=== PATIENT | female | born 1945 | race Caucasian/White ===

== ENCOUNTER 2018-06-10 04:02 | Emergency (ER) | payer MEDICARE, BC ==
[~2018-06-10] VITALS: Ht 154.9 cm; Wt 76.0 kg
[2018-06-10 04:09] VITALS: BP 154/88
[2018-06-10] MEDS ORDERED: gabapentin 300mg capsule PO ONE (04:45)
== END 2018-06-10 05:02 | disposition home or self-care (01) ==
LOC: ER 04:04
DX: F43.0 Acute stress reaction (principal); Z76.0 Encounter for issue of repeat prescription; J45.909 Unspecified asthma, uncomplicated; Z88.8 Allergy status to other drugs, medicaments and biological substances
CPT/HCPCS: 99282

== ENCOUNTER 2018-08-05 07:29 | Emergency (ER) | payer MEDICARE, BC ==
[~2018-08-05] VITALS: Ht 157.5 cm; Wt 78.5 kg
[2018-08-05 08:23] LABS: BASOPHILS # (AUTO) 0.1 X10'3 (0-0.2); BASOPHILS % (AUTO) 0.7 % (0-1); EOSINOPHILS % (AUTO) 0 % (0-6); HEMATOCRIT 37.6 % (35.0-45.0); HEMOGLOBIN 12.3 g/dl (12.0-16.0); LYMPHOCYTES # (AUTO) 2.4 X10'3 (1.1-4.8); LYMPHOCYTES % (AUTO) 34.8 % (21-51); MEAN CORPUSCULAR HEMOGLOBIN 28.4 PG (27.0-31.0); MEAN CORPUSCULAR HGB CONC 32.7 % (33.0-36.5); MEAN PLATELET VOLUME 7.3 FL (7.4-10.4); MONOCYTES # (AUTO) 0.3 X10'3 (0-0.9); MONOCYTES % (AUTO) 4.1 % (2-12); NEUTROPHILS # (AUTO) 4.1 X10'3 (1.8-7.7); NEUTROPHILS % (AUTO) 60.4 % (42-75); PLATELET COUNT 326 X10'3 (140-440); RED BLOOD COUNT 4.31 X10'6 (4.20-5.60); RED CELL DISTRIBUTION WIDTH 14.6 % (11.5-14.5); WHITE BLOOD COUNT 6.9 X10'3 (4.5-11.0)
--- NOTE | 2018-08-05 08:26 | NUR ---
PT AMBULATED TO RESTROOM WITH STEADY GAIT, AT HER SIDE.
[2018-08-05 08:37] LABS: ALANINE AMINOTRANSFERASE 25 U/L (12-78); ALBUMIN 3.3 G/DL (3.4-5.0); ALBUMIN/GLOBULIN RATIO 0.8 (1.1-1.5); ALKALINE PHOSPHATASE 98 IU/L (46-116); ANION GAP 7 (8-16); ASPARTATE AMINO TRANSFERASE 19 U/L (10-37); BILIRUBIN,TOTAL 0.2 MG/DL (0.1-1.0); BLOOD UREA NITROGEN 10 MG/DL (7-18); BUN/CREATININE RATIO 14.9 (6.6-38.0); CALCIUM 8.8 MG/DL (8.5-10.1); CHLORIDE 101 MMOL/L (99-107); CREATININE 0.67 MG/DL (0.40-0.90); GLUCOSE 135 MG/DL (70-104); POTASSIUM 4.1 MMOL/L (3.5-5.1); SODIUM 139 MMOL/L (135-145); TOTAL PROTEIN 7.3 G/DL (6.4-8.2); eGFR 86 ML/MIN
[2018-08-05] MEDS ORDERED: normal saline 1000ML IV soln IVB ONE (08:40)
[2018-08-05 08:51] LABS: PARTIAL THROMBOPLASTIN TIME 28 SECONDS (22-32)
[2018-08-05 09:23] LABS: CLARITY,URINE CLEAR (Clear); COLOR,URINE YELLOW (Yellow); GLUCOSE, URINE NEGATIVE (Neg); KETONES,URINE NEGATIVE (Neg); LEUKOCYTE ESTERASE ,URINE NEGATIVE (Neg); NITRITES, URINE NEGATIVE (Neg); OCCULT BLOOD,URINE NEGATIVE (Neg); PROTEIN,URINE NEGATIVE (Neg); UROBILINOGEN,URINE 0.2 E.U/dL (0.2-1.0)
[2018-08-05 09:30] LABS: UA COLLECTION TYPE CLN CATCH MIDSTREAM
[2018-08-05 10:34] VITALS: BP 134/74
== END 2018-08-05 10:36 | disposition home or self-care (01) ==
LOC: ER 07:30
DX: E86.0 Dehydration (principal); R53.1 Weakness; J45.909 Unspecified asthma, uncomplicated; Z88.8 Allergy status to other drugs, medicaments and biological substances
CPT/HCPCS: 36415; 71045; 80053; 81003; 84484; 85025; 85610; 85730; 93005; 96360; 99284; J7030

== ENCOUNTER 2018-12-13 09:19 | Emergency (ER) | payer MEDICARE, BC ==
[~2018-12-13] VITALS: Ht 154.9 cm; Wt 75.0 kg
[2018-12-13] MEDS ORDERED: morphine 4 MG/ML inj SYRINge IV PRN (10:05)
[2018-12-13] MEDS ORDERED: ondansetron/PF 4mg/2ml inj IV ONE (10:05)
[2018-12-13] MEDS ORDERED: normal saline 1000ML IV soln IVB ONE (10:05)
[2018-12-13] MEDS ORDERED: ketorolac trometh. 30mg/ml inj. IV ONE (10:05)
[2018-12-13] MEDS ORDERED: ketorolac tromethamine 15mg/ml inj. IV ONE (10:10)
[2018-12-13 10:47] LABS: ALANINE AMINOTRANSFERASE 26 U/L (12-78); ALBUMIN 3.5 G/DL (3.4-5.0); ALBUMIN/GLOBULIN RATIO 0.8 (1.1-1.5); ALKALINE PHOSPHATASE 114 IU/L (46-116); ANION GAP 4 (8-16); ASPARTATE AMINO TRANSFERASE 19 U/L (10-37); BILIRUBIN,TOTAL 0.3 MG/DL (0.1-1.0); BLOOD UREA NITROGEN 11 MG/DL (7-18); BUN/CREATININE RATIO 19.3 (6.6-38.0); CALCIUM 9.1 MG/DL (8.5-10.1); CHLORIDE 98 MMOL/L (99-107); CREATININE 0.57 MG/DL (0.40-0.90); GLUCOSE 117 MG/DL (70-104); POTASSIUM 4.8 MMOL/L (3.5-5.1); SODIUM 134 MMOL/L (135-145); TOTAL CARBON DIOXIDE 32.4 MMOL/L (24-32); TOTAL PROTEIN 7.7 G/DL (6.4-8.2); eGFR > 90 ML/MIN
[2018-12-13 10:48] LABS: BASOPHILS # (AUTO) 0.1 X10'3 (0-0.2); BASOPHILS % (AUTO) 0.6 % (0-1); EOSINOPHILS # (AUTO) 0.1 X10'3 (0-0.9); EOSINOPHILS % (AUTO) 0.7 % (0-6); HEMATOCRIT 39.8 % (35.0-45.0); HEMOGLOBIN 13.3 g/dl (12.0-16.0); LYMPHOCYTES # (AUTO) 1.4 X10'3 (1.1-4.8); LYMPHOCYTES % (AUTO) 16.4 % (21-51); MEAN CORPUSCULAR HEMOGLOBIN 28.8 PG (27.0-31.0); MEAN CORPUSCULAR HGB CONC 33.4 g/dL (33.0-36.5); MEAN CORPUSCULAR VOLUME 86.2 FL (78-98); MEAN PLATELET VOLUME 6.6 FL (7.4-10.4); MONOCYTES # (AUTO) 0.2 X10'3 (0-0.9); MONOCYTES % (AUTO) 2.5 % (2-12); NEUTROPHILS # (AUTO) 6.7 X10'3 (1.8-7.7); NEUTROPHILS % (AUTO) 79.8 % (42-75); PLATELET COUNT 355 X10'3 (140-440); RED BLOOD COUNT 4.62 X10'6 (4.20-5.60); WHITE BLOOD COUNT 8.4 X10'3 (4.5-11.0)
[2018-12-13] MEDS ORDERED: TRAM50TA2 PO (12:54)
[2018-12-13 13:10] VITALS: BP 142/96
== END 2018-12-13 13:12 | disposition home or self-care (01) ==
LOC: ER 09:19
DX: M25.552 Pain in left hip (principal); M51.36 Other intervertebral disc degeneration, lumbar region; M48.061 Spinal stenosis, lumbar region without neurogenic claudication; I10 Essential (primary) hypertension; J45.909 Unspecified asthma, uncomplicated; K21.9 Gastro-esophageal reflux disease without esophagitis; G89.29 Other chronic pain; Z88.8 Allergy status to other drugs, medicaments and biological substances
CPT/HCPCS: 36415; 72133; 72192; 73502; 73564; 80053; 85025; 96374; 96375; 99284; J1885; J2270; J2405; J7030

== ENCOUNTER 2019-01-15 10:35 | Outpatient (CLI) | payer MEDICARE, BC | END 2019-01-15 23:59 | disposition home or self-care (01) | LOC: RAD 10:35 | PROVIDERS: ATTEND Physician Assistant | DX: M48.061 Spinal stenosis, lumbar region without neurogenic claudication (principal); M43.16 Spondylolisthesis, lumbar region | CPT/HCPCS: 72148 ==

== ENCOUNTER 2020-10-20 08:39 | Outpatient (CLI) | payer MEDICARE, BC ==
[~2020-10-20 08:39] MED LIST: PHEN-716 PO
== END 2020-10-20 23:59 | disposition home or self-care (01) ==
LOC: RAD 08:39
PROVIDERS: ATTEND Specialist
DX: M47.816 Spondylosis without myelopathy or radiculopathy, lumbar region (principal); M48.061 Spinal stenosis, lumbar region without neurogenic claudication; M51.36 Other intervertebral disc degeneration, lumbar region; M43.16 Spondylolisthesis, lumbar region
CPT/HCPCS: 72148

== ENCOUNTER 2021-07-23 05:10 | Emergency (ER) | payer MEDICARE, BC ==
[~2021-07-23] VITALS: Ht 154.9 cm; Wt 77.3 kg
[2021-07-23 05:17] VITALS: BP 181/95
== END 2021-07-23 14:26 | disposition left against medical advice (07) ==
LOC: ER 05:10
DX: R11.10 Vomiting, unspecified (principal); R19.7 Diarrhea, unspecified; Z53.21 Procedure and treatment not carried out due to patient leaving prior to being seen by health care provider

== ENCOUNTER 2024-01-12 10:26 | Emergency (ER) | payer MEDICARE, BC ==
[~2024-01-12] VITALS: Ht 154.9 cm; Wt 90.9 kg
[2024-01-12] MEDS ORDERED: ketorolac trometh. 30mg/ml inj. IM ONE (10:45)
[2024-01-12] MEDS ORDERED: PRED20TA PO (10:51)
[2024-01-12] MEDS ORDERED: CYCL-1 PO (10:51)
[2024-01-12] MEDS: cyclobenzaprine 10mg tablet PO ONE (10:55)
[2024-01-12] MEDS: dexamethasone sod phosphate 10mg/ml inj IM STA (10:57)
[2024-01-12] MEDS: ketorolac tromethamine 15mg/ml inj. IM ONE (10:58)
[2024-01-12 11:15] VITALS: BP 109/51; PULSE 71; RESP 17; TEMP 98.5; O2SAT 96
== END 2024-01-12 11:18 | disposition home or self-care (01) ==
LOC: ER 10:26
DX: G89.29 Other chronic pain (principal); M79.18 Myalgia, other site; F03.90 Unspecified dementia, unspecified severity, without behavioral disturbance, psychotic disturbance, mood disturbance, and anxiety; I10 Essential (primary) hypertension; J45.909 Unspecified asthma, uncomplicated; K21.9 Gastro-esophageal reflux disease without esophagitis; M54.9 Dorsalgia, unspecified; Z88.8 Allergy status to other drugs, medicaments and biological substances; Z79.899 Other long term (current) drug therapy
CPT/HCPCS: 96372; 99284; A4615; J1100; J1885

== ENCOUNTER 2024-04-10 10:18 | Emergency (ER) | payer MEDICARE, BC ==
[~2024-04-10] VITALS: Ht 154.9 cm; Wt 90.9 kg
[~2024-04-10 10:18] MED LIST changes: +CYCL-1 PO
[2024-04-10] MEDS: dexamethasone sod phosphate 10mg/ml inj IM STA (11:08)
[2024-04-10] MEDS ORDERED: PRED20TA PO (11:43)
[2024-04-10] MEDS: ketorolac trometh 15mg/ml vial 15 MG/ML ML IM ONE (11:58)
[2024-04-10 12:01] VITALS: BP 117/54; PULSE 77; RESP 16; TEMP 98.2; O2SAT 94
== END 2024-04-10 12:03 | disposition home or self-care (01) ==
LOC: ER 10:18
DX: G89.29 Other chronic pain (principal); I10 Essential (primary) hypertension; J45.909 Unspecified asthma, uncomplicated; K21.9 Gastro-esophageal reflux disease without esophagitis; Z88.8 Allergy status to other drugs, medicaments and biological substances; Z79.899 Other long term (current) drug therapy
CPT/HCPCS: 96372; 99284; J1100; J1885

== ENCOUNTER 2024-06-19 12:22 | Inpatient (IN) | payer MEDICARE, BC ==
[~2024-06-19] VITALS: Ht 154.9 cm; Wt 100.0 kg
[2024-06-19] MEDS: predniSONE 20 mg tablet PO ONE (14:49)
[2024-06-19] MEDS: morphine 4 MG/ML inj SYRINge IV ONE (14:49)
[2024-06-19] MEDS: ondansetron/PF 4mg/2ml inj IV ONE (14:49)
[2024-06-19 15:17] LABS: BASOPHILS # (AUTO) 0.1 X10'3 (0-0.2); BASOPHILS % (AUTO) 0.9 % (0-1); EOSINOPHILS # (AUTO) 0.1 X10'3 (0-0.9); EOSINOPHILS % (AUTO) 0.8 % (0-6); HEMATOCRIT 32.6 % (35.0-45.0); HEMOGLOBIN 10.5 g/dl (12.0-16.0); LYMPHOCYTES # (AUTO) 2.3 X10'3 (1.1-4.8); LYMPHOCYTES % (AUTO) 32.3 % (21-51); MEAN CORPUSCULAR HEMOGLOBIN 28.1 PG (27.0-31.0); MEAN CORPUSCULAR HGB CONC 32.1 g/dL (33.0-36.5); MEAN CORPUSCULAR VOLUME 87.5 FL (78-98); MEAN PLATELET VOLUME 6.8 FL (7.4-10.4); MONOCYTES # (AUTO) 0.6 X10'3 (0-0.9); MONOCYTES % (AUTO) 8.8 % (2-12); NEUTROPHILS # (AUTO) 4.1 X10'3 (1.8-7.7); NEUTROPHILS % (AUTO) 57.2 % (42-75); PLATELET COUNT 398 X10'3 (140-440); RED BLOOD COUNT 3.73 X10'6 (4.20-5.60); RED CELL DISTRIBUTION WIDTH 13.8 % (11.5-14.5); WHITE BLOOD COUNT 7.1 X10'3 (4.5-11.0)
[2024-06-19 15:52] LABS: ALBUMIN 2.5 G/DL (3.4-5.0); ANION GAP 5 (8-16); BLOOD UREA NITROGEN 14 MG/DL (7-18); BUN/CREATININE RATIO 23.3 (10.0-20.0); CALCIUM 9.6 MG/DL (8.5-10.1); CHLORIDE 98 MMOL/L (99-107); GLUCOSE 92 MG/DL (70-104); POTASSIUM 3.5 MMOL/L (3.5-5.1); SODIUM 137 MMOL/L (135-145); TOTAL CARBON DIOXIDE 33.8 MMOL/L (24-32); eCRCL 57 ML/MIN; eGFR > 90 ML/MIN
[2024-06-19] MEDS ORDERED: potassium Cl 20 mEq SR tablet PO PRN ×2 (16:40)
[2024-06-19] MEDS ORDERED: magnesium sulf-water 4G/100mL 100 ML IV PRN (16:40)
[2024-06-19] MEDS ORDERED: magnesium sulf-water 2g/50mL 50 ML IV PRN (16:40)
[2024-06-19] MEDS ORDERED: potassium Cl 40MEQ/1/2NS 520ml 520 ML IV PRN (16:40)
[2024-06-19] MEDS ORDERED: mag hydrox/Alum hydrox/simeth 30ml oral suspension PO PRN (16:40)
[2024-06-19] MEDS ORDERED: ondansetron/PF 4mg/2ml inj IV PRN (16:40)
[2024-06-19] MEDS ORDERED: morphine 2 MG/ML inj. syringe IV PRN (16:40)
[2024-06-19] MEDS ORDERED: magnesium Cl slow-release 64mg tablet PO PRN (16:40)
[2024-06-19] MEDS: morphine 2 MG/ML inj. syringe IV PRN (17:25)
[2024-06-19 18:01] LABS: C-REACTIVE PROTEIN 8.06 MG/DL (0.0-0.5); CREATINE KINASE 49 U/L (26-192); PRO BRAIN NATRIURETIC PEPTIDE 276 PG/ML (0-450)
[2024-06-19] MEDS: furosemide 10 MG/1 ML 10ml inj IV ONE (18:31)
[2024-06-19] MEDS ORDERED: DULO60CA65 PO (19:32)
[2024-06-19] MEDS ORDERED: BUPR8TAB4 SL (19:32)
[2024-06-19] MEDS ORDERED: DULO30CA52 PO (19:32)
[2024-06-19] MEDS ORDERED: LORA-268 (19:32)
[2024-06-19] MEDS ORDERED: LORAZEPAM (19:32)
[2024-06-19] MEDS ORDERED: DONE-46 PO (19:32)
[2024-06-19] MEDS ORDERED: DILT-36 PO (19:32)
[2024-06-19] MEDS ORDERED: GABA-535 PO (19:32)
[2024-06-19] MEDS: K and/or MAG REPLACEMENT MC SCH (20:00)
[2024-06-19] MEDS: gabapentin 300mg capsule PO SCH (20:35)
[2024-06-19] MEDS: heparin, porcine 5000 units/ml vial SQ SCH (20:35)
[2024-06-20] MEDS: TYPE IN GENERIC & BRAND NAME OF PATIENT MED STRENGTH & FORM SL SCH
[2024-06-20] MEDS: HYDROcodone/acetaminophen 5mg/325mg tablet PO PRN (01:36)
[2024-06-20 06:02] LABS: BASOPHILS % (AUTO) 0.6 % (0-1); EOSINOPHILS % (AUTO) 0.1 % (0-6); HEMATOCRIT 29.5 % (35.0-45.0); HEMOGLOBIN 9.8 g/dl (12.0-16.0); LYMPHOCYTES # (AUTO) 2.1 X10'3 (1.1-4.8); LYMPHOCYTES % (AUTO) 30.9 % (21-51); MEAN CORPUSCULAR HEMOGLOBIN 28.6 PG (27.0-31.0); MEAN CORPUSCULAR HGB CONC 33.2 g/dL (33.0-36.5); MEAN CORPUSCULAR VOLUME 86.1 FL (78-98); MEAN PLATELET VOLUME 6.4 FL (7.4-10.4); MONOCYTES # (AUTO) 0.4 X10'3 (0-0.9); MONOCYTES % (AUTO) 5.3 % (2-12); NEUTROPHILS # (AUTO) 4.2 X10'3 (1.8-7.7); NEUTROPHILS % (AUTO) 63.1 % (42-75); PLATELET COUNT 403 X10'3 (140-440); RED BLOOD COUNT 3.42 X10'6 (4.20-5.60); RED CELL DISTRIBUTION WIDTH 13.6 % (11.5-14.5); WHITE BLOOD COUNT 6.7 X10'3 (4.5-11.0)
[2024-06-20 06:15] LABS: APTT 27 SECONDS (22-32); INR 1.1 INR
[2024-06-20 06:25] LABS: ALANINE AMINOTRANSFERASE 13 U/L (12-78); ALBUMIN 2.4 G/DL (3.4-5.0); ALBUMIN/GLOBULIN RATIO 0.5 (1.1-1.5); ALKALINE PHOSPHATASE 69 IU/L (46-116); ANION GAP 1 (8-16); ASPARTATE AMINO TRANSFERASE 14 U/L (10-37); BILIRUBIN,TOTAL 0.3 MG/DL (0.1-1.0); BLOOD UREA NITROGEN 15 MG/DL (7-18); BUN/CREATININE RATIO 23.4 (10.0-20.0); CALCIUM 9.1 MG/DL (8.5-10.1); CHLORIDE 96 MMOL/L (99-107); CREATININE 0.64 MG/DL (0.40-0.90); GLUCOSE 112 MG/DL (70-104); MAGNESIUM 1.8 MG/DL (1.5-2.4); PHOSPHORUS 4.6 MG/DL (2.3-4.5); POTASSIUM 3.6 MMOL/L (3.5-5.1); SODIUM 136 MMOL/L (135-145); TOTAL CARBON DIOXIDE 38.9 MMOL/L (24-32); TOTAL PROTEIN 7.3 G/DL (6.4-8.2); eCRCL 54 ML/MIN; eGFR 90 ML/MIN
[2024-06-20 06:42] LABS: URINE AMPHETAMINE SCREEN NEGATIVE (Neg); URINE BARBITUATE SCREEN NEGATIVE (Neg); URINE BENZODIAZEPINES SCREEN NEGATIVE (Neg); URINE CANNABINOID SCREEN NEGATIVE (Neg); URINE COCAINE SCREEN NEGATIVE (Neg); URINE METHADONE SCREEN NEGATIVE (Neg); URINE OPIATE SCREEN POSITIVE (Neg); URINE PHENCYCLIDINE SCREEN NEGATIVE (Neg)
[2024-06-20 06:48] LABS: BILIRUBIN,URINE NEGATIVE (Neg); CLARITY,URINE CLEAR (Clear); COLOR,URINE YELLOW (Yellow); GLUCOSE, URINE NEGATIVE (Neg); KETONES,URINE NEGATIVE (Neg); LEUKOCYTE ESTERASE ,URINE SMALL (Neg); NITRITES, URINE NEGATIVE (Neg); OCCULT BLOOD,URINE NEGATIVE (Neg); PROTEIN,URINE NEGATIVE (Neg); UROBILINOGEN,URINE 0.2 E.U/dL (0.2-1.0)
[2024-06-20 06:55] LABS: UA COLLECTION TYPE OTHER
[2024-06-20 06:56] LABS: BACTERIA,URINE 1+ /HPF (Neg); MUCUS STRANDS FEW /LPF (Neg); RBC,URINE NONE SEEN /HPF (0-2); SQUAMOUS EPITHELIAL CELL,UR MODERATE /LPF (FEW); WBC,URINE 20-30 /HPF (0-4)
[2024-06-20] MEDS: diltiazem CD 180mg cap (once-daily) PO SCH (08:59)
[2024-06-20] MEDS: donepezil 5mg tablet PO SCH (08:59)
[2024-06-20] MEDS: duloxetine 30mg CAPSULE.DR PO SCH (08:59)
[2024-06-20 09:00] VITALS: RESP 16
[2024-06-20] MEDS: predniSONE 20 mg tablet PO SCH (09:00)
[2024-06-20] MEDS: gabapentin 400mg capsule PO SCH (09:00)
[2024-06-20 10:00] VITALS: BP 142/70; PULSE 70; RESP 21; TEMP 97.5; O2SAT 97
[2024-06-20] MEDS ORDERED: buprenorphine/naloxone 8mg/2mg SL tablet SL PRN (10:35)
[2024-06-20 10:42] VITALS: RESP 18
[2024-06-20] MEDS: CefTRIAXone/D5W-Rocephin 1gm 50 ML IV SCH (11:41)
[2024-06-20] MEDS: buprenorphine/naloxone 8MG-2MG SUBlingual film SL SCH (13:33)
[2024-06-20] MEDS: hydrocortisone 1% cream 28gm TP SCH (13:34)
[2024-06-20] MEDS: methylPREDNISolone sod succ 125mg/2ml vial IV ONE (13:38)
[2024-06-20 14:13] VITALS: RESP 18
[2024-06-20 18:00] VITALS: BP 133/60; PULSE 80; RESP 18; TEMP 97.1; O2SAT 98
[2024-06-20] MEDS: docusate sod 100mg capsule PO SCH (20:47)
[2024-06-20 22:00] VITALS: BP 126/61; PULSE 72; RESP 13; TEMP 97.5; O2SAT 93
[2024-06-21] VITALS (9 sets, daily range): BP systolic 98–158; BP diastolic 47–86; PULSE 64–76; RESP 14–20; TEMP 97.7–98.3; O2SAT 91–96
[2024-06-21] MEDS: LORazepam 0.5 MG tablet PO PRN (00:11)
[2024-06-21] MEDS: acetaminophen 325mg tablet PO PRN (05:05)
[2024-06-21 06:03] LABS: BASOPHILS % (AUTO) 0.5 % (0-1); EOSINOPHILS % (AUTO) 0 % (0-6); HEMOGLOBIN 10.3 g/dl (12.0-16.0); LYMPHOCYTES # (AUTO) 1.4 X10'3 (1.1-4.8); MEAN CORPUSCULAR HEMOGLOBIN 28.5 PG (27.0-31.0); MEAN CORPUSCULAR HGB CONC 33.1 g/dL (33.0-36.5); MEAN CORPUSCULAR VOLUME 86.1 FL (78-98); MONOCYTES # (AUTO) 0.1 X10'3 (0-0.9); MONOCYTES % (AUTO) 2.2 % (2-12); NEUTROPHILS # (AUTO) 5.3 X10'3 (1.8-7.7); NEUTROPHILS % (AUTO) 77.3 % (42-75); PLATELET COUNT 434 X10'3 (140-440); RED CELL DISTRIBUTION WIDTH 13.6 % (11.5-14.5); WHITE BLOOD COUNT 6.9 X10'3 (4.5-11.0)
[2024-06-21 06:18] LABS: ALANINE AMINOTRANSFERASE 15 U/L (12-78); ALBUMIN 2.5 G/DL (3.4-5.0); ALBUMIN/GLOBULIN RATIO 0.5 (1.1-1.5); ALKALINE PHOSPHATASE 69 IU/L (46-116); ANION GAP 2 (8-16); ASPARTATE AMINO TRANSFERASE 16 U/L (10-37); BILIRUBIN,TOTAL 0.2 MG/DL (0.1-1.0); BLOOD UREA NITROGEN 20 MG/DL (7-18); CHLORIDE 95 MMOL/L (99-107); CREATININE 0.74 MG/DL (0.40-0.90); MAGNESIUM 1.7 MG/DL (1.5-2.4); PHOSPHORUS 4.4 MG/DL (2.3-4.5); POTASSIUM 3.8 MMOL/L (3.5-5.1); SODIUM 135 MMOL/L (135-145); TOTAL CARBON DIOXIDE 37.9 MMOL/L (24-32); TOTAL PROTEIN 7.5 G/DL (6.4-8.2); eCRCL 47 ML/MIN; eGFR 76 ML/MIN
[2024-06-21 06:19] LABS: APTT 26 SECONDS (22-32); PROTHROMBIN TIME 10.9 SECONDS (9.0-12.0)
[2024-06-21 06:32] LABS: GLUCOSE 144 MG/DL (70-104)
[2024-06-21] MEDS: predniSONE 20 mg tablet PO SCH (07:53)
[2024-06-21] MEDS: pantoprazole 40mg Tablet.DR PO SCH (07:53)
[2024-06-21] MEDS: lactose-reduced food (Ensure Enlive) - 237ml bottle PO SCH (07:56)
[2024-06-21] MEDS ORDERED: ARMO150T6 (08:31)
[2024-06-21] MEDS: folic acid 1mg tablet PO SCH (13:40)
[2024-06-21] MEDS: methoTREXATE 2.5mg tablet PO ONE (14:33)
[2024-06-21] MEDS: magnesium hydroxide 30ml (MOM) UD suspension PO PRN (17:25)
[2024-06-21] MEDS ORDERED: FURO40TA4 PO (23:14)
[2024-06-21] MEDS ORDERED: LISI1TAB49 PO (23:14)
[2024-06-22 06:00] VITALS: BP 139/94; PULSE 67; RESP 18; TEMP 97.5; O2SAT 93
[2024-06-22 06:54] LABS: BASOPHILS % (AUTO) 0.2 % (0-1); EOSINOPHILS % (AUTO) 0 % (0-6); HEMATOCRIT 31.2 % (35.0-45.0); HEMOGLOBIN 10.4 g/dl (12.0-16.0); LYMPHOCYTES # (AUTO) 3.6 X10'3 (1.1-4.8); LYMPHOCYTES % (AUTO) 37.6 % (21-51); MEAN CORPUSCULAR HEMOGLOBIN 28.8 PG (27.0-31.0); MEAN CORPUSCULAR HGB CONC 33.5 g/dL (33.0-36.5); MEAN CORPUSCULAR VOLUME 85.9 FL (78-98); MEAN PLATELET VOLUME 6.9 FL (7.4-10.4); MONOCYTES # (AUTO) 0.6 X10'3 (0-0.9); MONOCYTES % (AUTO) 6.7 % (2-12); NEUTROPHILS # (AUTO) 5.3 X10'3 (1.8-7.7); NEUTROPHILS % (AUTO) 55.5 % (42-75); PLATELET COUNT 410 X10'3 (140-440); RED BLOOD COUNT 3.63 X10'6 (4.20-5.60); RED CELL DISTRIBUTION WIDTH 13.9 % (11.5-14.5); WHITE BLOOD COUNT 9.6 X10'3 (4.5-11.0)
[2024-06-22 06:57] LABS: APTT 25 SECONDS (22-32); PROTHROMBIN TIME 10.8 SECONDS (9.0-12.0)
[2024-06-22 07:03] LABS: ALANINE AMINOTRANSFERASE 17 U/L (12-78); ALBUMIN 2.4 G/DL (3.4-5.0); ALBUMIN/GLOBULIN RATIO 0.5 (1.1-1.5); ALKALINE PHOSPHATASE 63 IU/L (46-116); ANION GAP 4 (8-16); ASPARTATE AMINO TRANSFERASE 15 U/L (10-37); BILIRUBIN,TOTAL 0.2 MG/DL (0.1-1.0); BLOOD UREA NITROGEN 26 MG/DL (7-18); BUN/CREATININE RATIO 34.7 (10.0-20.0); CALCIUM 9.4 MG/DL (8.5-10.1); CHLORIDE 96 MMOL/L (99-107); CREATININE 0.75 MG/DL (0.40-0.90); GLUCOSE 109 MG/DL (70-104); PHOSPHORUS 2.6 MG/DL (2.3-4.5); POTASSIUM 3.7 MMOL/L (3.5-5.1); SODIUM 138 MMOL/L (135-145); TOTAL CARBON DIOXIDE 37.6 MMOL/L (24-32); TOTAL PROTEIN 7.1 G/DL (6.4-8.2); eCRCL 46 ML/MIN; eGFR 75 ML/MIN
[2024-06-22] MEDS: furosemide 40mg tablet PO SCH (09:09)
[2024-06-22] MEDS: predniSONE 20 mg tablet PO SCH (09:12)
[2024-06-22 10:00] VITALS: BP 124/61; PULSE 64; RESP 16; TEMP 98; O2SAT 95
[2024-06-22] MEDS ORDERED: METH2.5T55 PO (12:52)
[2024-06-22] MEDS ORDERED: FOLI1TAB27 PO (12:52)
[2024-06-22] MEDS ORDERED: FURO-150 PO (12:52)
[2024-06-22] MEDS ORDERED: PANT40TA54 PO (12:52)
[2024-06-22] MEDS ORDERED: PRED20TA PO (12:52)
[2024-06-22] MEDS ORDERED: POTA-207 PO (12:52)
[2024-06-25 13:13] LABS: ANTI-DSDNA ANTIBODIES <1 IU/mL (0-9); ANTINUCLEAR ANTIBODIES Negative (Negative)
== END 2024-06-22 16:00 | disposition home health service (06) | DRG 291 ==
LOC: ER 12:23 → ED HOLD 16:52 → ORTHO 4S 06-20 00:18
PROVIDERS: ADMIT Family Medicine; ATTEND Family Medicine
DX: I11.0 Hypertensive heart disease with heart failure (principal); I50.31 Acute diastolic (congestive) heart failure; J96.01 Acute respiratory failure with hypoxia; N39.0 Urinary tract infection, site not specified; M35.3 Polymyalgia rheumatica; G47.33 Obstructive sleep apnea (adult) (pediatric); F03.90 Unspecified dementia, unspecified severity, without behavioral disturbance, psychotic disturbance, mood disturbance, and anxiety; I10 Essential (primary) hypertension; J45.909 Unspecified asthma, uncomplicated; G89.29 Other chronic pain; K21.9 Gastro-esophageal reflux disease without esophagitis; M54.9 Dorsalgia, unspecified; Z88.8 Allergy status to other drugs, medicaments and biological substances
CPT/HCPCS: 36415; 71045; 80048; 80053; 80305; 81001; 82550; 83605; 83735; 83880; 84100; 84145; 85025; 85610; 85651; 85730; 86038; 86140; 86256; 87040; 87081; 87088; 93005; 93306; 94760; 97116; 97161; 97530; 99285; A4615; G0378; J0696; J1644; J1940; J2270; J2405; J2919; J7512; J8610

== ENCOUNTER 2024-11-30 10:49 | Inpatient (IN) | payer MEDICARE, BC ==
[~2024-11-30] VITALS: Ht 154.9 cm; Wt 90.6 kg
[~2024-11-30 10:49] MED LIST changes: +ARMO150T6; +BUPR8TAB4 SL; -CYCL-1 PO; +DILT-36 PO; +DONE-46 PO; +DULO30CA52 PO; +DULO60CA65 PO; +FOLI1TAB27 PO; +FURO-150 PO; +GABA-535 PO; +LISI1TAB49 PO; +LORA-268; +METH2.5T55 PO; +PANT40TA54 PO; -PHEN-716 PO; +PRED20TA PO
--- NOTE | 2024-11-30 11:01 | ELECTROCARDIOGRAPH REPORT ---
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 Leonid Heredia Measurements Intervals [place] Rate: 141 P: 0 MA: 0 QRS: 4 QRSD: 92 T: -3 QT: 321 QTc: 492 Interpretive Statements Atrial fibrillation with rapid V-rate Borderline T abnormalities, inferior leads Electronically Signed On 11-30-2024 22:15:[address] Leonid Heredia Please click the below link to view image of tracing.
[2024-11-30 11:23] LABS: BASOPHILS # (AUTO) 0.1 X10'3 (0-0.2); EOSINOPHILS % (AUTO) 0.4 % (0-6); MONOCYTES # (AUTO) 0.5 X10'3 (0-0.9); NEUTROPHILS # (AUTO) 7.4 X10'3 (1.8-7.7)
[2024-11-30 11:24] LABS: BASOPHILS % (AUTO) 0.8 % (0-1); HEMATOCRIT 36.8 % (35.0-45.0); HEMOGLOBIN 12.3 g/dl (12.0-16.0); LYMPHOCYTES # (AUTO) 1.4 X10'3 (1.1-4.8); LYMPHOCYTES % (AUTO) 14.7 % (21-51); MEAN CORPUSCULAR HEMOGLOBIN 29.5 PG (27.0-31.0); MEAN CORPUSCULAR HGB CONC 33.4 g/dL (33.0-36.5); MEAN CORPUSCULAR VOLUME 88.4 FL (78-98); MONOCYTES % (AUTO) 5.8 % (2-12); NEUTROPHILS % (AUTO) 78.3 % (42-75); PLATELET COUNT 323 X10'3 (140-440); RED BLOOD COUNT 4.16 X10'6 (4.20-5.60); RED CELL DISTRIBUTION WIDTH 14.8 % (11.5-14.5); WHITE BLOOD COUNT 9.5 X10'3 (4.5-11.0)
[2024-11-30] MEDS: normal saline 1000ml 1,000 ML IV SCH (11:29)
[2024-11-30] MEDS: digoxin 250mcg/ml 2ml ampule IV ONE (11:33)
--- NOTE | 2024-11-30 11:59 | RADIOLOGY REPORT ---
CHEST RADIOGRAPH Indication: CP Technique: Single frontal view of the chest was obtained COMPARISON: DI CHEST,SINGLE VIEW on DOS: 06/19/24 FINDINGS: Lines and Tubes: None Lungs: Mild congestion Pleura: No effusion. No pneumothorax. Cardiomediastinal contours: Cardiomegaly Bones: Unremarkable IMPRESSION: Mild congestion
--- NOTE | 2024-11-30 12:08 | Physician Documentation ---
History of Present Illness ~ Chief Complaint: Rapid Heartbeat Stated Complaint: WANTS HEART CHECK UP Time Seen by MD: 11:05 OK to notify your PCP?: Yes Primary Medical Doctor: DR. SANTOS Mode of Arrival: POV HPI Patient came to the emergency room because of rapid heartbeat that was noticed yesterday at the doctor's office. She has a history of rheumatoid arthritis and also taking buprenorphine for pain medications dependency treatment. She is taking diltiazem but she said one time she was admitted to the hospital for three days and initially she was told atrial fibrillation and later she was told that is not AFib. She is not on any blood thinner. She has no chest pain and no shortness a breath but she does have pain in finger joints from rheumatoid arthritis and her assistant front office manager started her on prednisone yesterday. She is also taking other medication for rheumatoid arthritis. Medication Reconciliation Allergies: Coded Allergies: [id number] Reductase Inhibitor (Unverified Allergy, Unknown, 11/30/24) Scheduled Buprenorphine Hcl (Buprenorphine Hcl), 1 TAB SL Q8H, (Reported) Diltiazem HCl (Diltiazem 24Hr Cd), 1 CAP PO DAILY, (Reported) Donepezil Hcl (Donepezil Hcl), 1 TAB PO DAILY, (Reported) Duloxetine HCl (Duloxetine HCl), 1 CAP PO DAILY, (Reported) Duloxetine HCl (Duloxetine HCl), 1 CAP PO DAILY, (Reported) Folic Acid* (Folic Acid*), 1 MG PO DAILY Furosemide (Lasix), 20 MG PO BID Gabapentin (Gabapentin), 1 CAP PO TID, (Reported) Lisinopril/Hydrochlorothiazide (Lisinopril-Hctz 10-12.5 mg Tab), 1 TAB PO DAILY, (Reported) Methotrexate Sodium (METHOTREXATE tablet), 3 TAB PO ONCE Pantoprazole Sodium (Pantoprazole Sodium), 40 MG PO BKF Prednisone* (Prednisone*), 20 MG PO QAM@0830 Miscellaneous Medications Armodafinil (Armodafinil), (Reported) Lorazepam (Ativan), (Reported) Past Medical History Past Medical History: Dementia, Hypertension, Asthma, GERD, Chronic Pain, Chronic Back Pain, *PSYCH* Past Surgical History: noncontributory Patient History: FH: breast cancer MOTHER FH: diabetes mellitus Daughter FH: rheumatoid arthritis Sister Alcohol Use: None Drug Use: none Lives with: Family Review of Systems ROS As stated above in the HPI, otherwise all systems are reviewed and negative. Physical Exam Vital Signs: Temperature: 97.9, Source: Temporal, Heart Rate: 121, Respiratory Rate: 17, BP: 145/89, Pulse Oximetry: 95, Weight: 90.000 Oxygen Flow Rate: 0 Physical Exam Reviewed vital signs and they are well within normal range. Heart rate is 121 irregularly irregular. Const: Not in acute cardiopulmonary distress Head: Atraumatic Eyes: Normal Conjunctiva ENT: Normal External Ears, Nose and Mouth. Moist mucous membranes Neck: Full range of motion. No meningismus Resp: Clear to auscultation bilaterally. Normal work of breathing Cardio: Irregularly irregular fast heart rate Abd: Soft, non-tender, non-distended. Normal bowel sounds. No rebound or guarding Skin: No petechiae or rashes. Warm and dry Back: No midline or flank tenderness Ext: No cyanosis, or edema Neuro: Awake and alert Psych: Normal Mood and Affect Progress Results/Orders Results/Orders Orders - JEN JADE MD Chest,Single View (11/30/24 11:40) Monitor (11/30/24 10:56) Saline Lock (11/30/24 10:56) Oxygen (11/30/24 10:56) Hs Troponin I W Calculations (11/30/24 13:56) Normal Saline 1000ml (Sodium Chloride 10 (11/30/24 11:20) Buprenorphine/Naloxone Sl Film (Suboxone (11/30/24 16:00) Diltiazem-Ns 100mg/100ml (Cardizem-Ns 10 (11/30/24 14:20) Completed Orders - JEN JADE MD Chest,Single View (11/30/24 11:40) Cbc/Diff (11/30/24 10:56) Electrocardiogram (11/30/24 10:56) Hs Troponin I W Calculations (11/30/24 12:56) MG (11/30/24 11:19) Digoxin Inj. (Lanoxin Inj.) (11/30/24 11:20) CMP (11/30/24 11:23) PBNP (11/30/24 11:23) Troponin (Single) (11/30/24 11:23) Diltiazem Iv (Cardizem Iv 5mg/Ml Inj.) (11/30/24 12:10) Magnesium Sulf-Water 2g/50ml (Magnesium (11/30/24 12:10) Electrocardiogram (11/30/24 12:35) Medications Received in ER Medications (Trade) Dose Ordered Sig/Miri Route PRN Reason Start Time Stop Time Status Last Admin Dose Admin (Lanoxin inj.) 250 mcg ONCE ONCE IV 11/30/24 11:20 11/30/24 11:21 DC 11/30/24 11:33 250 MCG Sodium Chloride 1,000 ml @ 100 mls/hr Q10H IV 11/30/24 11:20 11/30/24 11:29 100 MLS/HR (Cardizem IV 5mg/ ml inj.) 23 mg ONCE ONCE IV 11/30/24 12:10 11/30/24 12:11 DC 11/30/24 12:27 23 MG Magnesium Sulfate 50 ml @ 50 mls/hr ONCE ONCE IV 11/30/24 12:10 11/30/24 13:09 DC 11/30/24 12:32 50 MLS/HR Vital Signs 11/30/24 11/30/24 11/30/24 11/30/24 10:53 11:33 12:27 12:30 Temp 97.9 Pulse 145 121 126 120 Resp 17 16 B/P (MAP) 145/89 131/91 130/89 (103) Pulse Ox 95 89 O2 Flow Rate 0 0 11/30/24 11/30/24 13:25 13:25 Pulse 107 Resp 16 B/P (MAP) 124/85 (98) Pulse Ox 99 O2 Flow Rate 1.0 Laboratory Tests Test 11/30/24 11:08 11/30/24 11:51 11/30/24 13:30 White Blood Count 9.5 Red Blood Count 4.16 L Hemoglobin 12.3 Hematocrit 36.8 Mean Corpuscular Volume 88.4 Mean Corpuscular Hemoglobin 29.5 Mean Corpuscular Hemoglobin Concent 33.4 Red Cell Distribution Width 14.8 H Platelet Count 323 Mean Platelet Volume 8.0 Neutrophils (%) (Auto) 78.3 H Lymphocytes (%) (Auto) 14.7 L Monocytes (%) (Auto) 5.8 Eosinophils (%) (Auto) 0.4 Basophils (%) (Auto) 0.8 Neutrophils # (Auto) 7.4 Lymphocytes # (Auto) 1.4 Monocytes # (Auto) 0.5 Eosinophils # (Auto) 0.0 Basophils # (Auto) 0.1 CBC Comment Chemistry Comments Sodium Level 137 Potassium Level 3.7 Chloride Level 99 Carbon Dioxide Level 34.1 H Anion Gap 4 L Blood Urea Nitrogen 27 H Creatinine 0.60 Estimated GFR/1.73 m2 > 90 BUN/Creatinine Ratio 45.0 H Glucose Level 141 H Calcium Level 8.8 Magnesium Level 1.7 Total Bilirubin 0.4 Aspartate Amino Transf (AST/SGOT) 21 Alanine Aminotransferase (ALT/SGPT) 28 Alkaline Phosphatase 85 Troponin I High Sensitivity 9 8 Pro-B-Type Natriuretic Peptide 942 H Total Protein 6.8 Albumin 3.1 L Globulin 3.7 Albumin/Globulin Ratio 0.8 L Medical Decision Making Findings During the physical examination, the findings suggestive of acute life- threatening condition such as JVD, tracheal deviation, acidotic breathing, noisy stridorous breath sounds, pulses paradoxus, muffled heart sounds, unequal breath sounds, abdominal rigidity and rebound tenderness, focal neurological deficits, cool clammy skin, severe hypotension, severe tachycardia or bradycardia are absent. Patient is hemodynamically stable. Her CBC essentially normal. CMP: no evidence of clinically significant acidosis, alkalosis, renal dysfunction, diabetic ketoacidosis, acute liver disease or electrolyte imbalance Except her BUN is 27 and creatinine 0.6. Troponin is initially nine and 2nd one is eight. ProBNP is over 700. Patient was treated with one dose of digoxin and diltiazem and then put on diltiazem drip. She will be admitted to the hospital for further evaluation and treatment. Currently she has no siderographer. DISCLAIMER Inadvertent spelling and grammatical errors,inadvertent cook roast errors,syntax errors, grammatical errors, and spelling errors are likely due to EMR/dictation software use and do not reflect on the overall quality of patient care. Note that the electronic time recorded on this note does not necessarily reflect the actual time of the patient encounter. Departure Disposition: ADMITTED INPATIENT Impression: Primary Impression: Atrial fibrillation with RVR Additional Impression: Rheumatoid arthritis Referrals: NO PRIMARY CARE PROVIDER (PCP) Signature Scribe Signature: x Attestation: JEN Melton MD November 30, 2024 12:08
[2024-11-30] MEDS: diltiazem 5mg/ml 5ml inj. IV ONE (12:27)
[2024-11-30] MEDS: magnesium sulf-water 2g/50mL 50 ML IV ONE (12:32)
[2024-11-30 12:36] LABS: ALANINE AMINOTRANSFERASE 28 U/L (12-78); ALBUMIN 3.1 G/DL (3.4-5.0); ALBUMIN/GLOBULIN RATIO 0.8 (1.1-1.5); ALKALINE PHOSPHATASE 85 IU/L (46-116); ANION GAP 4 (8-16); ASPARTATE AMINO TRANSFERASE 21 U/L (10-37); BILIRUBIN,TOTAL 0.4 MG/DL (0.1-1.0); BLOOD UREA NITROGEN 27 MG/DL (7-18); CALCIUM 8.8 MG/DL (8.5-10.1); CHLORIDE 99 MMOL/L (99-107); GLUCOSE 141 MG/DL (70-104); POTASSIUM 3.7 MMOL/L (3.5-5.1); SODIUM 137 MMOL/L (135-145); TOTAL CARBON DIOXIDE 34.1 MMOL/L (24-32); TOTAL PROTEIN 6.8 G/DL (6.4-8.2); eCRCL 56 ML/MIN; eGFR > 90 ML/MIN
[2024-11-30 12:45] LABS: PRO BRAIN NATRIURETIC PEPTIDE 942 PG/ML (0-450)
--- NOTE | 2024-11-30 12:46 | ELECTROCARDIOGRAPH REPORT ---
[facility] Test Date: 2024-11-30 Test Time: 12:43:25 Pat Name: TESS BARNETT Department: EMERGENCY ROOM Room: ED 8 Gender: F Supervisor Metal Hanging: MARGIE : 1945 Requested By: JEN JADE Order Number: [id number] Reading MD: Dr. Leonid Heredia Measurements Intervals [place] Rate: 76 P: 0 TN: 0 QRS: 18 QRSD: 100 T: 25 QT: 396 QTc: 446 Interpretive Statements Atrial fibrillation Ventricular premature complex Borderline T abnormalities, anterior leads Electronically Signed On 11-30-2024 18:40:[address] Leonid Heredia Please click the below link to view image of tracing.
[2024-11-30] MEDS: diltiazem-NS 100mg/100ml 100 ML IV ONE (14:34)
[2024-11-30] MEDS ORDERED: magnesium sulf-water 2g/50mL 50 ML IV PRN (14:45)
[2024-11-30] MEDS ORDERED: acetaminophen 325mg tablet PO PRN (14:45)
[2024-11-30] MEDS ORDERED: magnesium Cl slow-release 64mg tablet PO PRN (14:45)
[2024-11-30] MEDS ORDERED: potassium Cl 20 mEq SR tablet PO PRN (14:45)
[2024-11-30] MEDS ORDERED: morphine 2 MG/ML inj. syringe IV PRN (14:45)
[2024-11-30] MEDS ORDERED: magnesium sulf-water 4G/100mL 100 ML IV PRN (14:45)
[2024-11-30] MEDS ORDERED: potassium Cl 40MEQ/1/2NS 520ml 520 ML IV PRN (14:45)
[2024-11-30] MEDS ORDERED: ondansetron/PF 4mg/2ml inj IV PRN (14:45)
[2024-11-30] MEDS: diltiazem-NS 100mg/100ml 100 ML IV SCH (15:30)
[2024-11-30] MEDS: buprenorphine/naloxone 8MG-2MG SUBlingual film SL ONE (15:31)
--- NOTE | 2024-11-30 16:02 | HISTORY AND PHYSICAL-Residence ---
History & Physical Providers to Resident Creating Document: TOBI LONG, RES ~ History of Present Illness Primary Medical Doctor: Dr. Connor Mcadams Reason for Admit\Complaint: Tachycardia History of Present Illness PCP: Dr. Connor Mcadams. [facility] Unemployment Benefits Claims Taker: [facility] 79 years old female patient with past medical history of rheumatoid arthritis, hypertension, back pain, fibromyalgia came to the hospital with chief complaint of heart racing. The patient mentioned that she has been having pain in all of her joints due to her past medical history of rheumatoid arthritis, reason for which he went yesterday to his time buyer where she was evaluated. While she underwent the physical exam elevated heart rate was noticed and her time buyer recommended her to come to the hospital. The patient was brought by her . The patient endorses that lately the pain in her joints has been 8/10 in intensity, localized in all of her joints, described as a sharp type. The patient denies any sensation of palpitations, chest pain, shortness of breath. The patient endorses that she normally walks with the help of a walker due to her joint pain. Allergies: Coded Allergies: [id number]-KIX-LgN Reductase Inhibitor (Unverified Allergy, Unknown, 11/30/24) Home Medications Home Medications Active Folic Acid* (Folic Acid) Y Tab 1 Mg PO DAILY 30 Days Prednisone* (Prednisone) 20 Mg Tablet 20 Mg PO QAM@0830 12 Days Lasix (Furosemide) 20 Mg Tablet 20 Mg PO BID 30 Days Pantoprazole Sodium 40 Mg Tablet.dr 40 Mg PO BKF 30 Days Reported Lisinopril-Hctz 10-12.5 mg Tab (Lisinopril/Hydrochlorothiazide) 10 Mg-12.5 Mg Tablet 1 Tab PO DAILY Armodafinil 150 Mg Tablet Ativan (Lorazepam) 0.5 Mg Tablet Diltiazem 24Hr Cd (Diltiazem HCl) 180 Mg Cap.er.24h 1 Cap PO DAILY Donepezil Hcl 5 Mg Tablet 1 Tab PO DAILY Gabapentin 400 Mg Capsule 1 Cap PO TID Duloxetine HCl 60 Mg Capsule.dr 1 Cap PO DAILY total dose 90mg 30+60 Buprenorphine Hcl 8 Mg Tab.subl 1 Tab SL Q8H Duloxetine HCl 30 Mg Capsule.dr 1 Cap PO DAILY 90mg total dose 30 + 60mg Past Medical History Past Medical History Rheumatoid arthritis being followed by time buyer in [facility]. Hypertension. Chronic back pain. Fibromyalgia. Tuberculosis at the age of [age] years old for which she received treatment. Obstructive sleep apnea for which she uses CPAP. Not being able to use her CPAP lately because of new changes in her machine. Past Surgical History Surgical History Comment Hysterectomy at the age of [age] years old due to fibroid tumors. Family History Family History: FH: breast cancer MOTHER FH: diabetes mellitus Daughter FH: rheumatoid arthritis Sister Past Social History Smoking: Non-Smoker Alcohol Use: None Drug Use: None Lives with: Family Lives In: Home Occupation: retired (She used to work in the [employer] department.) ROS All Other Systems: Reviewed and Negative Exam Vitals: Vital Signs Date Time Temp Pulse Resp B/P (MAP) Pulse Ox O2 Delivery O2 Flow Rate FiO2 11/30/24 15:30 95 133/78 11/30/24 14:41 16 100 2.0 11/30/24 14:38 N/A 11/30/24 10:53 97.9 Physical exam: General: Well alert, well oriented, not confused, not agitated, not in acute distress, well cooperated during the physical, obese woman. HEENT: Conjunctive are pink, sclerae clear, no icterus, pupil is equal in both sides, reactive to light, no ear discharge, no pharyngeal erythema or an edema. Neck: Supple, no JVD, no lymphadenopathy and thyromegaly. Chest: Equal air entry on both lungs, mild expiratory wheezing. Cardiovascular: S1-S2 irregular rhythm and rate, no gallops, no rubs, no murmurs Abdomen: No visible peristalsis, Bowel sounds present on auscultation, soft, nontender, no guarding, no rigidity Extremities: No obvious deformities, no pitting edema bilaterally, capillary refill intact, peripheral pulsations are intact on both sides, presence of varicose vein in right lower extremity. Central Nervous System: No focal neurological deficits, no motor or sensory weakness in all 4 extremities, could move all 4 extremities, 2+ deep tendon reflexes, negative Babinski. Musculoskeletal: Presence of swollen joints in bilateral hands and feet, inflammations, and no scoliosis and back tenderness Skin: Warm and dry. Diagnostic Data Last Recorded Lab Results: 11/30/24 1108 11/30/24 1151 Advance Care Planning Advanced Care plannin - 30 Minutes (I spent a total of 17 minutes on reviewing various resuscitative measures/ACP with the patient at the time of admission. The patient has decided on a full code status.) Additional Plan Assessment and plan: 79 years old female patient came to the hospital referred from her time buyer due to tachycardia. Atrial fibrillation with RVR: Chads Vasc score: 4 The patient was evaluated by her time buyer and tachycardia was evidenced. On physical exam irregular rhythm and rate is evidenced. EKG showing: Atrial fibrillation with rapid ventricular rate. Heart rate 141. Well's score: 3 follow-up D-dimer. Cardizem drip at 5 mL/hour. Eliquis 5 mg b.i.d. Rheumatoid arthritis: Pain control with buprenorphine. Prednisone 20 mg daily recommended by her shearing machine operator to be completed on 12/10/2024. Hypertension: Currently on Cardizem drip. Lisinopril 10 mg daily. Obstructive sleep apnea: History of asthma: Albuterol p.r.n. CPAP at night. Code status: Full code DVT prophylaxis: On Eliquis Analgesia/sedation: [place], buprenorphine. Line/tube: PIV GI prophylaxis: Protonix Nutrition: Regular diet PT: Ordered Prognosis: Guarded Disposition: Admission to PCU with telemetry. Tobi Lion Internal Medicine Resident [facility] Date of Service: November 30, 2024 Billing Provider: LUCIA MCNALLY MD Common Visit Codes: [id number] INP/OBS CARE (HIGH) Secondary Visit Codes: 10222-[id number] CARE PLAN 30 MINUTES TOBI LONG, RES November 30, 2024 16:02 LUCIA MCNALLY MD November 30, 2024 20:23
[2024-11-30] MEDS ORDERED: albuterol 1.25 MG/3 ML (1/2 strength) nebule NEB PRN (16:05)
[2024-11-30 16:32] LABS: D-DIMER 0.43 MG/L FEU (0-0.50); PROTHROMBIN TIME 10.4 SECONDS (9.0-12.0)
[2024-11-30 17:05] VITALS: PULSE 101; RESP 12; O2SAT 97
--- NOTE | 2024-11-30 17:08 | CARDIOLOGY REPORT ---
APPROVED REPORT EXAM: Comprehensive 2D, Doppler, and color-flow Echocardiogram. Patient Location: [facility] Blood Pressure: 97/54 mmHg Heart Rate: 113 bpm Rhythm: Atrial Flutter Indications Congestive Heart Failure Troponin: 9870 ProBNP: 33921 NO BRAKE MECHANIC NO Previous ECHO 2D Dimensions IVSd 0.9 (0.7-1.1cm) LVDd 3.6 cm PWd 0.8 (0.7-1.1cm) IVSs 1.2 (0.8-1.2cm) LVDs 2.6 (2.5-4.0cm) PWs 1.2 (0.8-1.2cm) LVOT Diameter 1.88 (1.8-2.4cm) LVEF(%) 55.1 (>50%) Ao Asc Diam.2.91 cmIVC 18.07 mm FS (%) 28.0 % SV 30.9 ml CO 3.4 L/min M-Mode Dimensions Left Atrium(MM) 3.51 (2.5-4.0cm) Aortic Root 2.62 (2.2-3.7cm) Aortic Cusp Exc 1.31 (1.5-2.0cm) MV EPSS 1.1 (<0.5cm) Aortic Valve AoV Peak Louie. 135.1 cm/s AoV VTI 21.4 cm AO Peak GR. 7.3 mmHg AO Mean GR. 3 mmHg LVOT VTI 17.08 cm LVOT Peak Louie. 95.3 cm/s YOKASTA(VTI)/BSA 2.22 cm2/m2 YOKASTA (VTI) 2.22 cm2 TDI Lateral E' P. V10.90 cm/s Tricuspid Valve TR P. Velocity 281 cm/s RAP ESTIMATE 10 mmHg TR Peak Gr. 32 mmHg RVSP 42 mmHg LEFT VENTRICLE Normal LV size and wall thickness. Overall systolic function is normal. LVEF is 55%. RIGHT VENTRICLE Right ventricle is mildly dilated with adequate function. Elevated right heart pressures with an RVSP of 42 mmHg. ATRIA The left atrium size is normal. AORTIC VALVE Trileaflet AV appears mildly sclerotic without stenosis. No insufficiency. MITRAL VALVE Moderate mitral annular calcification without stenosis. Mild regurgitation. TRICUSPID VALVE The tricuspid valve is normal in structure with mild to moderate regurgitation. PULMONIC VALVE The pulmonary valve is normal in structure with physiologic insufficiency. GREAT VESSELS The aortic root is normal in size. The ascending aorta is normal in size. IVC is normal in size. PERICARDIUM Normal pericardium. No effusion. Other Information Study Quality: Adequate Conclusion Normal LV size and wall thickness. Overall systolic function is normal. LVEF is 55%. Right ventricle is mildly dilated with adequate function. Elevated right heart pressures with an RVS P of 42 mmHg. The left atrium size is normal. Trileaflet AV appears mildly sclerotic without stenosis. No insufficiency. Moderate mitral annular calcification without stenosis. Mild regurgitation. The tricuspid valve is normal in structure with mild to moderate regurgitation. Normal pericardium. No effusion.
[2024-11-30 19:19] VITALS: BP 129/83; PULSE 90; TEMP 97.4; O2SAT 94
[2024-11-30 20:00] VITALS: RESP 14; O2SAT 95; O2SAT 96
[2024-11-30] MEDS ORDERED: heparin, porcine 5000 units/ml vial SQ SCH (20:00)
[2024-11-30] MEDS ORDERED: duloxetine 30mg CAPSULE.DR PO SCH (20:00)
[2024-11-30] MEDS: gabapentin 400mg capsule PO SCH (21:14)
[2024-11-30] MEDS: apixaban 5mg tablet PO SCH (21:15)
[2024-11-30] MEDS: furosemide 20MG tablet PO SCH (21:15)
[2024-11-30 22:00] VITALS: BP 130/81; PULSE 95; TEMP 97.1; O2SAT 95
[2024-11-30] MEDS: HYDROcodone/acetaminophen 5mg/325mg tablet PO PRN (23:04)
[2024-12-01] VITALS (9 sets, daily range): BP systolic 116–152; BP diastolic 69–99; PULSE 83–102; RESP 12–22; TEMP 97.1–97.9; O2SAT 93–97
[2024-12-01] MEDS: acetaminophen 325mg tablet PO PRN (03:36)
[2024-12-01 06:59] LABS: BASOPHILS # (AUTO) 0.1 X10'3 (0-0.2); BASOPHILS % (AUTO) 0.7 % (0-1); EOSINOPHILS % (AUTO) 0.4 % (0-6); HEMATOCRIT 35.9 % (35.0-45.0); HEMOGLOBIN 11.6 g/dl (12.0-16.0); LYMPHOCYTES # (AUTO) 2.4 X10'3 (1.1-4.8); LYMPHOCYTES % (AUTO) 31.1 % (21-51); MEAN CORPUSCULAR HEMOGLOBIN 28.9 PG (27.0-31.0); MEAN CORPUSCULAR HGB CONC 32.1 g/dL (33.0-36.5); MEAN CORPUSCULAR VOLUME 89.9 FL (78-98); MEAN PLATELET VOLUME 7.7 FL (7.4-10.4); MONOCYTES # (AUTO) 0.5 X10'3 (0-0.9); MONOCYTES % (AUTO) 6.4 % (2-12); NEUTROPHILS # (AUTO) 4.7 X10'3 (1.8-7.7); NEUTROPHILS % (AUTO) 61.4 % (42-75); PLATELET COUNT 243 X10'3 (140-440); RED BLOOD COUNT 3.99 X10'6 (4.20-5.60); RED CELL DISTRIBUTION WIDTH 15.2 % (11.5-14.5); WHITE BLOOD COUNT 7.6 X10'3 (4.5-11.0)
[2024-12-01 07:38] LABS: ALANINE AMINOTRANSFERASE 26 U/L (12-78); ALBUMIN 2.8 G/DL (3.4-5.0); ALBUMIN/GLOBULIN RATIO 0.8 (1.1-1.5); ALKALINE PHOSPHATASE 75 IU/L (46-116); ANION GAP 4 (8-16); ASPARTATE AMINO TRANSFERASE 20 U/L (10-37); BILIRUBIN,TOTAL 0.4 MG/DL (0.1-1.0); BLOOD UREA NITROGEN 20 MG/DL (7-18); BUN/CREATININE RATIO 43.5 (10.0-20.0); CALCIUM 8.4 MG/DL (8.5-10.1); CHLORIDE 103 MMOL/L (99-107); CREATININE 0.46 MG/DL (0.40-0.90); GLUCOSE 105 MG/DL (70-104); POTASSIUM 3.6 MMOL/L (3.5-5.1); SODIUM 141 MMOL/L (135-145); TOTAL CARBON DIOXIDE 34.5 MMOL/L (24-32); TOTAL PROTEIN 6.3 G/DL (6.4-8.2); eCRCL 74 ML/MIN; eGFR > 90 ML/MIN
[2024-12-01] MEDS: pantoprazole 40mg Tablet.DR PO SCH (08:13)
[2024-12-01] MEDS: predniSONE 20 mg tablet PO SCH (08:13)
[2024-12-01] MEDS: donepezil 5mg tablet PO SCH (08:13)
[2024-12-01] MEDS: duloxetine 30mg CAPSULE.DR PO SCH (08:13)
[2024-12-01] MEDS: HYDROcodone/acetaminophen 10/325mg tab PO PRN (08:13)
[2024-12-01] MEDS: lisinopril 10 MG tablet PO SCH (08:17)
[2024-12-01] MEDS: folic acid 1mg tablet PO SCH (08:17)
--- NOTE | 2024-12-01 11:51 | PROGRESS NOTE ---
Daily Progress Note Providers to CC Feels better today resting comfortably in the bed ~ Central Line/PICC still needed: No Bearden-Non Protocol Bearden Indications Met/Not Met: F/C Indications Not Met Antibiotic Timeout Antibiotic Ordered?: Yes MRSA Education MRSA Education Provided to pt: Yes Subjective As above Objective Vital Signs Date Time Temp Pulse Resp B/P (MAP) Pulse Ox O2 Delivery O2 Flow Rate FiO2 12/01/24 09:13 16 12/01/24 08:17 91 12/01/24 06:00 97.1 125/83 (97) 97 Room Air 11/30/24 19:01 0 11/30/24 17:05 21 Vital signs, stable ,afebrile. Pulse Oximetry reflects adequate oxygenation. General: well developed, well nourished. Awake , alert, and oriented x4, resting comfortably in the bed, in no acute distress . Skin: Warm, dry, no pallor, no rash or petechiae. HEENT: Atraumatic, normocephalic, EOMI, anicteric sclera B; pink conjunctiva; PERRLA, normal oropharynx, moist oral and nasal mucosa. Tympanic membrane , nose , throat clear. Neck: Trachea midline. Supple, full range of motion, no JVD, bruit , hepatojugular reflex , lymphadenopathy or masses, or other lesions Cardiac: Regular rhythm, regular rate no murmurs, rubs, or gallops. Normal S1 and S2, no S3 noticed. PMI is normal. Respiratory: Equal breath sounds bilaterally, no tachypnea; lungs clear to auscultation bilaterally, no wheezing ,rub or rales, or crackles. Chest wall is symmetric and without deformity. No signs of trauma. Chest wall is nontender. No signs of respiratory distress. Resonance is normal upon percussion bilaterally. Gastrointestinal: Abdomen symmetric, non-distended, soft, non-tender, normal bowel sounds x4 quadrant, normoactive, no hepatosplenomegaly , no masses , no bruit, no flank pain bilaterally. No voluntary guarding, rebound, or rigidity. No tenderness to percussion. No pulsatile masses. Equal femoral pulses. No Jackman's sign or McBurney point tenderness. Back; no CVA tenderness bilaterally, no deformities. Neck and back are without deformity as well. No tenderness noted on palpation of the spinous processes. Spinous processes are midline. Cervical, thoracic, and lumbar paraspinal muscles are not tender and are without spasm. Musculoskeletal: Extremities, normal range of motion, non-tender, muscle strength 5/5 x 4. Negative Homans signs bilaterally on lower extremity. Distal pulses full symmetrical, no clubbing, cyanosis , edema. Neurological: Speech is clear, alert, and oriented x 4. No motor or sensory deficit, deep tendon reflexes normal, cerebellar intact. Cranial nerves II-XII intact. Psych: Alert and or appropriate, normal affect. Vascular: Good distal pulses, which are equal x4; capillary refill less than 2 seconds. Lymphatic, no lymphadenopathy. Result Diagram: 12/01/24 0531 12/01/24 0531 Coagulation Studies Laboratory Tests Test 11/30/24 16:11 Prothrombin Time 10.4 SECONDS (9.0-12.0) INR International Normalized Ratio 1.0 INR D-Dimer 0.43 MG/L FEU (0-0.50) D-Dimer Comment Coagulation Comments Problem\Assessment\Plan Assessment and plan: 79 years old female patient came to the hospital referred from her acquisitions logistics analyst due to tachycardia. Atrial fibrillation with RVR: Chads Vasc score: 4 The patient was evaluated by her acquisitions logistics analyst and tachycardia was evidenced. On physical exam irregular rhythm and rate is evidenced. EKG showing: Atrial fibrillation with rapid ventricular rate. Heart rate 141. Well's score: 3 follow-up D-dimer. Cardizem drip at 5 mL/hour. Eliquis 5 mg b.i.d. Rheumatoid arthritis: Pain control with buprenorphine. Prednisone 20 mg daily recommended by her admissions assistant to be completed on 12/10/2024. Hypertension: Currently on Cardizem drip. Lisinopril 10 mg daily. Obstructive sleep apnea: History of asthma: Albuterol p.r.n. CPAP at night. Code status: Full code DVT prophylaxis: On Eliquis Analgesia/sedation: [place], buprenorphine. Line/tube: PIV GI prophylaxis: Protonix Nutrition: Regular diet PT: Ordered Prognosis: Guarded Sepsis Screening Reassessment Date: December 01, 2024 Date of Service: December 01, 2024 Billing Provider: RADHA CONTRERAS MD Common Visit Codes: [id number] INP/OBS CARE(HIGH) RADHA CONTRERAS MD December 01, 2024 11:51
[2024-12-01] MEDS ORDERED: diltiazem 60mg tablet PO SCH ×2 (15:00→21:00)
[2024-12-01] MEDS ORDERED: diltiazem 30mg tablet PO SCH (15:07)
[2024-12-01 15:28] LABS: FREE T4 (FREE THYROXINE) 0.99 NG/DL (0.73-1.40)
[2024-12-01] MEDS: diltiazem 30mg tablet PO SCH (16:00)
[2024-12-01] MEDS ORDERED: duloxetine 30mg CAPSULE.DR PO SCH (20:00)
[2024-12-02] VITALS (8 sets, daily range): BP systolic 106–147; BP diastolic 62–90; PULSE 85–116; RESP 12–22; TEMP 96.4–98.2; O2SAT 93–97
[2024-12-02 08:02] LABS: BASOPHILS % (AUTO) 0.5 % (0-1); EOSINOPHILS % (AUTO) 0.4 % (0-6); HEMATOCRIT 36.4 % (35.0-45.0); HEMOGLOBIN 12.2 g/dl (12.0-16.0); LYMPHOCYTES # (AUTO) 2.3 X10'3 (1.1-4.8); LYMPHOCYTES % (AUTO) 29.2 % (21-51); MEAN CORPUSCULAR HEMOGLOBIN 29.9 PG (27.0-31.0); MEAN CORPUSCULAR HGB CONC 33.5 g/dL (33.0-36.5); MEAN CORPUSCULAR VOLUME 89.3 FL (78-98); MEAN PLATELET VOLUME 7.2 FL (7.4-10.4); MONOCYTES # (AUTO) 0.5 X10'3 (0-0.9); MONOCYTES % (AUTO) 6.8 % (2-12); NEUTROPHILS # (AUTO) 5.1 X10'3 (1.8-7.7); NEUTROPHILS % (AUTO) 63.1 % (42-75); PLATELET COUNT 236 X10'3 (140-440); RED BLOOD COUNT 4.07 X10'6 (4.20-5.60); RED CELL DISTRIBUTION WIDTH 14.8 % (11.5-14.5)
[2024-12-02 08:27] LABS: ALANINE AMINOTRANSFERASE 24 U/L (12-78); ALBUMIN 2.9 G/DL (3.4-5.0); ALBUMIN/GLOBULIN RATIO 0.8 (1.1-1.5); ALKALINE PHOSPHATASE 79 IU/L (46-116); ANION GAP 4 (8-16); ASPARTATE AMINO TRANSFERASE 12 U/L (10-37); BILIRUBIN,TOTAL 0.4 MG/DL (0.1-1.0); BLOOD UREA NITROGEN 15 MG/DL (7-18); BUN/CREATININE RATIO 28.8 (10.0-20.0); CALCIUM 8.4 MG/DL (8.5-10.1); CHLORIDE 103 MMOL/L (99-107); CREATININE 0.52 MG/DL (0.40-0.90); GLUCOSE 118 MG/DL (70-104); POTASSIUM 3.5 MMOL/L (3.5-5.1); SODIUM 143 MMOL/L (135-145); TOTAL CARBON DIOXIDE 36.3 MMOL/L (24-32); TOTAL PROTEIN 6.5 G/DL (6.4-8.2); eCRCL 65 ML/MIN; eGFR > 90 ML/MIN
[2024-12-02] MEDS: docusate sod 100mg capsule PO SCH (09:04)
[2024-12-02] MEDS ORDERED: guaiFENesin 200mg/20mg codeine phos 10ml UD oral syrup PO PRN (13:55)
--- NOTE | 2024-12-02 17:54 | PROGRESS NOTE ---
Daily Progress Note Providers to CC ~ feels fine today, no complaint, resting comfortably in bed Central Line/PICC still needed: No Bearden-Non Protocol Bearden Indications Met/Not Met: F/C Indications Not Met Antibiotic Timeout Antibiotic Ordered?: No MRSA Education MRSA Education Provided to pt: No Subjective As above Objective Vital Signs Date Time Temp Pulse Resp B/P (MAP) Pulse Ox O2 Delivery O2 Flow Rate FiO2 12/02/24 15:23 16 12/02/24 10:00 98.2 104 106/82 (90) 93 Room Air 12/02/24 06:00 2.0 11/30/24 17:05 21 Vital signs, stable ,afebrile. Pulse Oximetry reflects adequate oxygenation. General: well developed, well nourished. Awake , alert, and oriented x4, resting comfortably in the bed, in no acute distress . Skin: Warm, dry, no pallor, no rash or petechiae. HEENT: Atraumatic, normocephalic, EOMI, anicteric sclera B; pink conjunctiva; PERRLA, normal oropharynx, moist oral and nasal mucosa. Tympanic membrane , nose , throat clear. Neck: Trachea midline. Supple, full range of motion, no JVD, bruit , hepatojugular reflex , lymphadenopathy or masses, or other lesions Cardiac: Regular rhythm, regular rate no murmurs, rubs, or gallops. Normal S1 and S2, no S3 noticed. PMI is normal. Respiratory: Equal breath sounds bilaterally, no tachypnea; lungs clear to auscultation bilaterally, no wheezing ,rub or rales, or crackles. Chest wall is symmetric and without deformity. No signs of trauma. Chest wall is nontender. No signs of respiratory distress. Resonance is normal upon percussion bilaterally. Gastrointestinal: Abdomen symmetric, non-distended, soft, non-tender, normal bowel sounds x4 quadrant, normoactive, no hepatosplenomegaly , no masses , no bruit, no flank pain bilaterally. No voluntary guarding, rebound, or rigidity. No tenderness to percussion. No pulsatile masses. Equal femoral pulses. No Jackman's sign or McBurney point tenderness. Back; no CVA tenderness bilaterally, no deformities. Neck and back are without deformity as well. No tenderness noted on palpation of the spinous processes. Spinous processes are midline. Cervical, thoracic, and lumbar paraspinal muscles are not tender and are without spasm. Musculoskeletal: Extremities, normal range of motion, non-tender, muscle strength 5/5 x 4. Negative Homans signs bilaterally on lower extremity. Distal pulses full symmetrical, no clubbing, cyanosis , edema. Neurological: Speech is clear, alert, and oriented x 4. No motor or sensory deficit, deep tendon reflexes normal, cerebellar intact. Cranial nerves II-XII intact. Psych: Alert and or appropriate, normal affect. Vascular: Good distal pulses, which are equal x4; capillary refill less than 2 seconds. Lymphatic, no lymphadenopathy. Result Diagram: 12/02/24 0711 12/02/24 0711 Coagulation Studies Laboratory Tests Test 11/30/24 16:11 Prothrombin Time 10.4 SECONDS (9.0-12.0) INR International Normalized Ratio 1.0 INR D-Dimer 0.43 MG/L FEU (0-0.50) D-Dimer Comment Coagulation Comments Problem\Assessment\Plan Assessment and plan: 79 years old female patient came to the hospital referred from her recreation professor due to tachycardia. Atrial fibrillation with RVR: Chads Vasc score: 4 The patient was evaluated by her recreation professor and tachycardia was evidenced. On physical exam irregular rhythm and rate is evidenced. EKG showing: Atrial fibrillation with rapid ventricular rate. Heart rate 141. Well's score: 3 follow-up D-dimer. Cardizem drip at 5 mL/hour completed. Started on p.o. Cardizem Eliquis 5 mg b.i.d. Rheumatoid arthritis: Pain control with buprenorphine. Prednisone 20 mg daily recommended by her annealer to be completed on 12/10/2024. Hypertension: Currently on Cardizem drip. Lisinopril 10 mg daily. Obstructive sleep apnea: History of asthma: Albuterol p.r.n. CPAP at night. Code status: Full code DVT prophylaxis: On Eliquis Analgesia/sedation: Wray, buprenorphine. Line/tube: PIV GI prophylaxis: Protonix Nutrition: Regular diet PT: Ordered Prognosis: Guarded Sepsis Screening Reassessment Date: December 02, 2024 Date of Service: December 02, 2024 Billing Provider: RADHA CONTRERAS MD Common Visit Codes: 12340-[id number] INP/OBS CARE(HIGH) RADHA CONTRERAS MD December 02, 2024 17:54
[2024-12-03] MEDS: buprenorphine/naloxone 8MG-2MG SUBlingual film SL PRN (00:58)
[2024-12-03] MEDS: metoprolol tartrate 1mg/ml inj IV ONE (01:28)
[2024-12-03 02:00] VITALS: BP 141/88; PULSE 90; RESP 13; TEMP 98.8; O2SAT 98
[2024-12-03 06:00] VITALS: BP 158/99; PULSE 106; RESP 15; TEMP 97.3; O2SAT 92
[2024-12-03] MEDS: morphine 2 MG/ML inj. syringe IV PRN (06:05)
[2024-12-03 07:59] LABS: BASOPHILS # (AUTO) 0.1 X10'3 (0-0.2); BASOPHILS % (AUTO) 0.6 % (0-1); EOSINOPHILS % (AUTO) 0 % (0-6); HEMOGLOBIN 12.2 g/dl (12.0-16.0); LYMPHOCYTES # (AUTO) 2.8 X10'3 (1.1-4.8); LYMPHOCYTES % (AUTO) 31.4 % (21-51); MEAN CORPUSCULAR HEMOGLOBIN 29.4 PG (27.0-31.0); MEAN PLATELET VOLUME 7.3 FL (7.4-10.4); MONOCYTES # (AUTO) 0.7 X10'3 (0-0.9); MONOCYTES % (AUTO) 7.3 % (2-12); NEUTROPHILS # (AUTO) 5.4 X10'3 (1.8-7.7); NEUTROPHILS % (AUTO) 60.7 % (42-75); PLATELET COUNT 245 X10'3 (140-440); RED BLOOD COUNT 4.16 X10'6 (4.20-5.60); RED CELL DISTRIBUTION WIDTH 14.8 % (11.5-14.5); WHITE BLOOD COUNT 8.9 X10'3 (4.5-11.0)
[2024-12-03 08:00] VITALS: RESP 15; O2SAT 91
[2024-12-03] MEDS: HYDROchlorothiazide 12.5mg capsule PO SCH (08:25)
[2024-12-03] MEDS: lisinopril 10 MG tablet PO SCH (08:28)
[2024-12-03 08:30] LABS: ALANINE AMINOTRANSFERASE 23 U/L (12-78); ALBUMIN/GLOBULIN RATIO 0.9 (1.1-1.5); ALKALINE PHOSPHATASE 78 IU/L (46-116); ANION GAP 4 (8-16); ASPARTATE AMINO TRANSFERASE 18 U/L (10-37); BILIRUBIN,TOTAL 0.4 MG/DL (0.1-1.0); BLOOD UREA NITROGEN 18 MG/DL (7-18); BUN/CREATININE RATIO 34.6 (10.0-20.0); CALCIUM 8.8 MG/DL (8.5-10.1); CHLORIDE 100 MMOL/L (99-107); CREATININE 0.52 MG/DL (0.40-0.90); GLUCOSE 100 MG/DL (70-104); POTASSIUM 3.2 MMOL/L (3.5-5.1); SODIUM 141 MMOL/L (135-145); TOTAL CARBON DIOXIDE 37.3 MMOL/L (24-32); TOTAL PROTEIN 6.5 G/DL (6.4-8.2); eCRCL 65 ML/MIN; eGFR > 90 ML/MIN
[2024-12-03] MEDS: potassium Cl 20 mEq SR tablet PO PRN (08:37)
[2024-12-03 09:58] VITALS: PULSE 110; RESP 20; O2SAT 91
[2024-12-03 10:00] VITALS: BP 149/84; PULSE 132; RESP 18; TEMP 98.5; O2SAT 93
[2024-12-03] MEDS ORDERED: APIX5TAB3 PO (12:00)
[2024-12-03] MEDS ORDERED: DILT60TA35 PO (12:00)
[2024-12-03 12:05] VITALS: RESP 13
[2024-12-03] MEDS: potassium chloride 10mEq ER tablet PO STA (13:45)
--- NOTE | 2024-12-03 19:06 | DISCHARGE SUMMARY ---
Discharge Summary Providers to CC New complaint today, eager to be discharged home ~ Discharge Summary Assessment CHF, mild decreased ejection fraction 52%, associated with pulmonary hyper tension, in exacerbation Elevated BNP 142 Gait disorder use walker for ambulat Atrial fibrillation rapid ventricular rate Chronic respiratory failure on home oxygen in exacerbation Obstructive sleep apnea on CPAP Chronic pain syndrome secondary to low back degenerative disc disease Rheumatoid arthritis chronic Hypertension fair control fibromyalgia Admission Diagnosis: AFib with RVR, chronic pain syndrome, Admission Diagnosis Comment: CHF, mild decreased ejection fraction 52%, associated with pulmonary hypertension, in exacerbation Elevated BNP 942 Gait disorder use walker for ambulat Atrial fibrillation rapid ventricular rate Chronic respiratory failure on home oxygen in exacerbation Obstructive sleep apnea on CPAP Chronic pain syndrome secondary to low back degenerative disc disease Rheumatoid arthritis chronic Hypertension fair control fibromyalgia Hospital Course DATE OF ADMISSION: November 30, 2024 DATE OF DISCHARGE: December 03, 2024 Discharge Diagnosis\Comment: CHF, mild decreased ejection fraction 52%, associated with pulmonary hypertension, in exacerbation Elevated BNP 942 Gait disorder use walker for ambulat Atrial fibrillation rapid ventricular rate Chronic respiratory failure on home oxygen in exacerbation Obstructive sleep apnea on CPAP Chronic pain syndrome secondary to low back degenerative disc disease Rheumatoid arthritis chronic Hypertension fair control fibromyalgia Operations\Procedures: None Consultants: None Complications: None Condition on DC: Stable Discharge Summary: 79 years old female patient with past medical history of rheumatoid arthritis, CHF ejection fraction 52%, associated with pulmonary hypertension, hypertension, back pain, fibromyalgia came to the hospital with chief complaint of heart racing. The patient mentioned that she has been having pain in all of her joints due to her past medical history of rheumatoid arthritis, reason for which he went yesterday to his produce clerk where she was evaluated. While she underwent the physical exam elevated heart rate was noticed and her produce clerk recommended her to come to the hospital. The patient was brought by her . The patient endorses that lately the pain in her joints has been 8/10 in intensity, localized in all of her joints, described as a sharp type. The patient denies any sensation of palpitations, chest pain, shortness of breath.The patient endorses that she normally walks with the help of a walker due to her joint pain. To admission patient was evaluated extensively echocardiography consistent with systolic CHF mild decreased ejection fraction 52% associated with pulmonary hypertension, and she was treated including Cardizem infusion NPO Cardizem, today she feels better no complaint eager to be discharged home in stable condition, medication reconciled, recommended follow- up PCP Cardiology in the morning, return to emergency department if condition worsens, today on physical exam, Vital signs, stable ,afebrile. Pulse Oximetry reflects adequate oxygenation on 2 L oxygen nasal cannula, General: well developed, well nourished. Awake , alert, and oriented x4, resting comfortably in the bed, in no acute distress . Skin: Warm, dry, no pallor, no rash or petechiae. HEENT: Atraumatic, normocephalic, EOMI, anicteric sclera B; pink conjunctiva; PERRLA, normal oropharynx, moist oral and nasal mucosa. Tympanic membrane , nose , throat clear. Neck: Trachea midline. Supple, full range of motion, no JVD, bruit , hepato jugular reflex , lymphadenopathy or masses, or other lesions Cardiac: Regular rhythm, regular rate no murmurs, rubs, or gallops. Normal S1 and S2, no S3 noticed. PMI is normal. Respiratory: Equal breath sounds bilaterally, no tachypnea; lungs clear to auscultation bilaterally, no wheezing ,rub or rales, or crackles. Chest wall is symmetric and without deformity. No signs of trauma. Chest wall is nontender. No signs of respiratory distress. Resonance is normal upon percussion bilaterally. Gastrointestinal: Abdomen symmetric, non-distended, soft, non-tender, normal bowel sounds x4 quadrant, normoactive, no hepatosplenomegaly , no masses , no bruit, no flank pain bilaterally. No voluntary guarding, rebound, or rigidity. No tenderness to percussion. No pulsatile masses. Equal femoral pulses. No Jackman's sign or McBurney point tenderness. Back; no CVA tenderness bilaterally, no deformities. Neck and back are without deformity as well. No tenderness noted on palpation of the spinous processes. Spinous processes are midline. Cervical, thoracic, and lumbar paraspinal muscles are not tender and are without spasm. : normal external genitalia, without lesions, swelling, masses or tenderness. Musculoskeletal: Extremities, normal range of motion, non-tender, muscle strength 5/5 x 4. Negative Homans signs bilaterally on lower extremity. Distal pulses full symmetrical, no clubbing, cyanosis , edema. Neurological: Speech is clear, alert, and oriented x 4. No motor or sensory deficit, deep tendon reflexes normal, cerebellar intact. Cranial nerves II-XII intact. Psych: Alert and or appropriate, normal affect. Vascular: Good distal pulses, which are equal x4; capillary refill less than 2 seconds. Lymphatic, no lymphadenopathy. *Problems/Diagnosis: (1) Rheumatoid arthritis Status: Acute (2) Atrial fibrillation with RVR Status: Acute (3) Chronic pain disorder Status: Acute Total Time Spent on D/C: > 30 Minutes Date of Service: December 03, 2024 Billing Provider: RADHA CONTRERAS MD Common Visit Codes: 26017-STB/OBS DISCH DAY >30min RADHA CONTRERAS MD December 03, 2024 19:06
[2024-12-04] MEDS ORDERED: APIX5TAB3 PO (08:21)
[2024-12-04] MEDS ORDERED: DILT60TA35 PO (08:21)
== END 2024-12-03 15:08 | disposition home or self-care (01) | DRG 291 ==
LOC: ER 10:50 → ED HOLD 14:49 → PCU 3S 20:15
PROVIDERS: ADMIT Internal Medicine; ATTEND Internal Medicine
DX: I11.0 Hypertensive heart disease with heart failure (principal); I50.23 Acute on chronic systolic (congestive) heart failure; J96.20 Acute and chronic respiratory failure, unspecified whether with hypoxia or hypercapnia; I48.91 Unspecified atrial fibrillation; M06.9 Rheumatoid arthritis, unspecified; F03.90 Unspecified dementia, unspecified severity, without behavioral disturbance, psychotic disturbance, mood disturbance, and anxiety; M51.360 Other intervertebral disc degeneration, lumbar region with discogenic back pain only; G47.33 Obstructive sleep apnea (adult) (pediatric); K21.9 Gastro-esophageal reflux disease without esophagitis; G89.4 Chronic pain syndrome; M79.7 Fibromyalgia; I27.20 Pulmonary hypertension, unspecified; J45.909 Unspecified asthma, uncomplicated; Z99.81 Dependence on supplemental oxygen; Z79.01 Long term (current) use of anticoagulants; Z79.899 Other long term (current) drug therapy; Z80.3 Family history of malignant neoplasm of breast; Z83.3 Family history of diabetes mellitus; Z88.8 Allergy status to other drugs, medicaments and biological substances; Z82.61 Family history of arthritis
CPT/HCPCS: 36415; 71045; 80053; 83735; 83880; 84439; 84443; 84480; 84484; 85025; 85379; 85610; 87081; 93005; 93306; 94760; 96361; 96365; 96366; 96375; 97116; 97161; 97530; 99285; A4615; A6590; G0378; J1160; J2270; J3490; J7030; J7512